=== PATIENT | male | born 1975 | race Caucasian/White ===

== ENCOUNTER 2017-10-04 18:40 | Emergency (ER) | payer SELFPAY ==
--- NOTE | 2017-10-04 19:08 | RAD ---
LEFT SHOULDER THREE VIEWS: History: Pain. Comparison: None. FINDINGS: Glenohumeral joint space is preserved. No fracture or dislocation. Visualized left ribs are unremarka ble. IMPRESSION: No fracture or dislocation. POS: ADOLFO
[2017-10-04] MEDS ORDERED: Ketorolac Tromethamine 30 MG/ML VIAL ONE (21:49)
--- NOTE | 2017-10-04 22:14 | RAD ---
TWO VIEWS THORACIC SPINE: History: Pain. Comparison: None. FINDINGS: Vertebral body height is maintained. No fracture. Mild loss of disc space height and minimal osteophy te formation is noted. IMPRESSION: Unremarkable thoracic spine. POS: ADOLFO
== END 2017-10-04 22:12 | disposition home or self-care (01) ==
LOC: ERS 18:40
DX: S46.912A Strain of unspecified muscle, fascia and tendon at shoulder and upper arm level, left arm, initial encounter (principal); G47.30 Sleep apnea, unspecified; X50.9XXA Other and unspecified overexertion or strenuous movements or postures, initial encounter
CPT/HCPCS: 72072; 96372; J1885